=== PATIENT | male | born 1970 | race Caucasian/White ===

== ENCOUNTER 2017-07-04 18:01 | Emergency (ER) | payer OTHER ==
--- NOTE | 2017-07-04 18:40 | UC ---
Eye Complaint HPI - HPI Summary HPI Summary: 47 YEAR OLD MALE PRESENTS WITH COMPLAINS OF LEFT EYELID SWELLING - History of Current Complaint Stated Complaint: EYE IRRITATION Time Seen by Provider: 07/04/17 18:39 Hx Obtained From: Patient Onset/Duration: Sudden Onset Timing: Constant Severity Initially: Moderate Severity Currently: Moderate - Allergies/Home Medications Allergies/Adverse Reactions: Allergies Allergy/AdvReac Type Severity Reaction Status Date / Time No Known Allergies Allergy Verified 07/04/17 18:43 PMH/Surg Hx/FS Hx/Imm Hx - Surgical History Surgical History: Yes Surgery Procedure, Year, and Place: WISDOM TEETH - Family History Known Family History: Positive: None - Social History Alcohol Use: Weekly Substance Use Type: None Smoking Status (MU): Never Smoked Tobacco Review of Systems Constitutional: Negative Skin: Negative Eyes: Other - LEFT EYELID SWELLING ENT: Negative Respiratory: Negative Cardiovascular: Negative Gastrointestinal: Negative Genitourinary: Negative Motor: Negative Neurovascular: Negative Musculoskeletal: Negative Neurological: Negative Psychological: Negative All Other Systems Reviewed And Are Negative: Yes Physical Exam Triage Information Reviewed: Yes Vital Signs Reviewed: Yes Eyes: Positive: Other: - LEFT EYELID SWELLING ENT Exam: Normal Dental Exam: Normal Neck exam: Normal Neck: Positive: 1 Respiratory Exam: Normal Cardiovascular Exam: Normal Abdominal Exam: Normal Musculoskeletal Exam: Normal Neurological Exam: Normal Psychological Exam: Normal Skin Exam: Normal Eye Complaint Course/Dx - Differential Dx/Diagnosis Provider Diagnoses: LEFT EYELID SWELLING Discharge - Discharge Plan Condition: Stable Disposition: HOME Prescriptions: Amoxicillin/Clavulanate TAB* [Augmentin TAB 875*] 875 mg PO BID #14 tab Polymyx/Trimethoprim OPTH* [Polytrim OPHTH*] 1 drop LEFT EYE Q6H #1 btl Patient Education Materials: Periorbital Cellulitis in Adults (ED), Conjunctivitis (ED) Referrals: Curly Suazo MD [Primary Care Provider] - Dameon Simpson MD [Medical Doctor] -
[2017-07-04 18:46] VITALS: BP 128/68
== END 2017-07-04 19:04 | disposition home or self-care (01) ==
LOC: UCEAST 18:01
DX: H02.846 Edema of left eye, unspecified eyelid (principal)
CPT/HCPCS: 99212; G0463